=== PATIENT | male | born 1965 | race Caucasian/White ===

== ENCOUNTER → 2017-01-27 | Outpatient (CLI) | payer OTHER ==
[2017-01-27 18:09] LABS: HEMATOCRIT 42.9 % (42-52)
[2017-01-27 18:40] LABS: ALT/SGPT 20 U/L (12-78); BLOOD UREA NITROGEN 14 mg/dl (7-18); BUN/CREATININE RATIO 16.4 (10-20); CALCIUM 8.8 mg/dl (8.5-10.1); CARBON DIOXIDE 31 mmol/L (21-32); CHLORIDE 105 mmol/L (98-107); CHOLESTEROL 161 mg/dl (0-200); CHOLESTEROL/HDL RATIO 2.8; CREATININE 0.83 mg/dl (0.60-1.40); GLUCOSE 64 mg/dl (70-99); HDL CHOLESTEROL 58 mg/dl; LDL CHOLESTEROL CALCULATED 57 mg/dl; POTASSIUM 3.7 mmol/L (3.5-5.1); SODIUM 142 mmol/L (136-145); TRIGLYCERIDES 228 mg/dl (0-150); VERY LOW DENSITY LIPOPROT CALC 46 mg/dl
== END | disposition home or self-care (01) ==
LOC: C.LABMFLN 15:59
PROVIDERS: ATTEND Family Medicine
DX: E78.5 Hyperlipidemia, unspecified (principal); I10 Essential (primary) hypertension; R53.83 Other fatigue

== ENCOUNTER 2022-11-23 08:41 | Inpatient (IN) ==
--- NOTE | 2022-09-15 09:43 | Communication Note ---
Date of Service: September 15, 2022 Patient does not meet criteria to be done at [facility]. Pt is 163.3 KG w/ BMI 51.7( super Obese), along w/ other significant co-morbidities.
--- NOTE | 2022-10-21 11:08 | PAT Medication Instructions ---
Medication Instructions Date of Service October 21, 2022 Home Medications Medication Instructions Recorded Full mask/Nasal Mask #1 ea 05/20/20 cyclobenzaprine 10 mg tablet 10 mg PO BID PRN muscle spasm #60 06/10/22 tabs oxycodone 5 mg tablet 5 mg PO Q8H PRN pain #9 tabs 09/07/22 melatonin 10 mg tablet 10 mg PO HS PRN sleep #90 tabs 09/10/22 Wheeled Walker #1 ea 09/16/22 gabapentin 600 mg tablet 1,200 mg PO BID #120 tabs 10/07/22 simvastatin 40 mg tablet 40 mg PO HS #90 tabs 10/07/22 escitalopram oxalate 20 mg tablet 20 mg PO QAM ketoconazole 2 % topical cream 1 applic topical BID PRN irritation nystatin 100,000 unit/gram topical powder 1 applic topical BID PRN flare cyclobenzaprine 10 mg tablet 10 mg PO BID PRN muscle spasm bupropion HCl 300 mg 24 hr tablet, extended release 300 mg PO QAM buspirone 15 mg tablet 15 mg PO TID calcium 500 mg tablet 500 mg PO QAM latanoprost 0.005 % eye drops 1 drp ophthalmic (eye) HS multivitamin 1 tab PO QAM omeprazole 40 mg capsule,delayed release 40 mg PO QAM oxycodone 5 mg tablet 5 mg PO Q8H PRN pain topiramate 100 mg tablet 100 mg PO BID hydroxyzine pamoate 25 mg capsule 50 mg PO HS melatonin 10 mg tablet 10 mg PO HS PRN sleep cetirizine 10 mg tablet 10 mg PO QAM ergocalciferol (vitamin D2) 50 mcg (2,000 unit) tablet 50 mcg PO QAM gabapentin 600 mg tablet 1,200 mg PO BID simvastatin 40 mg tablet 40 mg PO HS STOP taking 24 hours before surgery ketoconazole 2 % topical cream 1 applic topical BID PRN irritation nystatin 100,000 unit/gram topical powder 1 applic topical BID PRN flare DO NOT take the morning of surgery cyclobenzaprine 10 mg tablet 10 mg PO BID PRN muscle spasm calcium 500 mg tablet 500 mg PO QAM multivitamin 1 tab PO QAM cetirizine 10 mg tablet 10 mg PO QAM ergocalciferol (vitamin D2) 50 mcg (2,000 unit) tablet 50 mcg PO QAM Take morning of surgery With a small sip of water, OTHERWISE NOTHING TO EAT OR DRINK AFTER MIDNIGHT: escitalopram oxalate 20 mg tablet 20 mg PO QAM bupropion HCl 300 mg 24 hr tablet, extended release 300 mg PO QAM buspirone 15 mg tablet 15 mg PO TID omeprazole 40 mg capsule,delayed release 40 mg PO QAM oxycodone 5 mg tablet 5 mg PO Q8H PRN pain (if needed) topiramate 100 mg tablet 100 mg PO BID gabapentin 600 mg tablet 1,200 mg PO BID Take evening before surgery cyclobenzaprine 10 mg tablet 10 mg PO BID PRN muscle spasm (if needed) buspirone 15 mg tablet 15 mg PO TID latanoprost 0.005 % eye drops 1 drp ophthalmic (eye) HS oxycodone 5 mg tablet 5 mg PO Q8H PRN pain (if needed) topiramate 100 mg tablet 100 mg PO BID hydroxyzine pamoate 25 mg capsule 50 mg PO HS melatonin 10 mg tablet 10 mg PO HS PRN sleep (if needed) gabapentin 600 mg tablet 1,200 mg PO BID simvastatin 40 mg tablet 40 mg PO HS Other Notes If you have any questions please call us at [phone] or [phone] or [phone] or [phone]
--- NOTE | 2022-10-27 10:30 | Anesthesiology Consultation ---
Date of Service October 27, 2022 Assessment & Plan (1) Encounter for pre-operative examination: Chart Review Chart Review: Acceptable Risk for Surgery (pending PCP appt 11/11/22) and Patient seen in Pre Admission Testing - Awaiting routine PCP appt 11/11/22 - Due to BMI and living situation- patient is NOT an ideal OPJ candidate Per PAT appt on 10/27/22, patient denies any recent travel or large group activities. Pt is vaccinated for Covid. Will leave to surgeon's discretion if preop Covid testing needed. Educated on importance of using Covid precautions one week prior to surgery History Surgery Operation Date: 09/24/22 07:00 Proposed Procedures p Right Knee Arthroscopy, Partial Medial Meniscectomy, Chondroplasty(Right) - Max Tinajero DO Operation Date: 11/23/22 10:30 Proposed Procedures p Right Total Knee Arthroplasty - Max Tinajero DO Pt scheduled for right TKA 11/23/22 Height/Weight Height: 5 ft 10 in Weight: 166.3 kg Allergies Allergy/AdvReac Type Severity Reaction Status Date / Time adhesive Allergy Intermediate Blister Verified 10/20/22 09:06 and redness Medications Home Medications Medication Instructions Recorded Confirmed Last Taken escitalopram oxalate 20 mg tablet 20 mg PO QAM 06/12/19 10/20/22 09/07/22 Full mask/Nasal Mask #1 ea 05/20/20 09/10/22 Unknown ketoconazole 2 % topical cream 1 applic topical BID PRN irritation 08/04/21 10/20/22 1 Week Ago ~08/31/22 nystatin 100,000 unit/gram topical 1 applic topical BID PRN flare 08/04/21 10/20/22 1 Week Ago powder ~08/31/22 cyclobenzaprine 10 mg tablet 10 mg PO BID PRN muscle spasm #60 06/10/22 10/20/22 1 Week Ago tabs ~08/31/22 bupropion HCl 300 mg 24 hr tablet, 300 mg PO QAM 09/07/22 10/20/22 09/07/22 extended release buspirone 15 mg tablet 15 mg PO TID 09/07/22 10/20/22 09/07/22 calcium 500 mg tablet 500 mg PO QAM 09/07/22 10/20/22 09/07/22 latanoprost 0.005 % eye drops 1 drp ophthalmic (eye) HS 09/07/22 10/20/22 09/06/22 multivitamin 1 tab PO QAM 09/07/22 10/20/22 09/07/22 omeprazole 40 mg capsule,delayed 40 mg PO QAM 09/07/22 10/20/22 09/07/22 release oxycodone 5 mg tablet 5 mg PO Q8H PRN pain #9 tabs 09/07/22 10/20/22 Unknown topiramate 100 mg tablet 100 mg PO BID 09/07/22 10/20/22 09/07/22 hydroxyzine pamoate 25 mg capsule 50 mg PO HS 09/10/22 10/20/22 Unknown melatonin 10 mg tablet 10 mg PO HS PRN sleep #90 tabs 09/10/22 10/20/22 Unknown cetirizine 10 mg tablet 10 mg PO QAM 09/14/22 10/20/22 Unknown ergocalciferol (vitamin D2) 50 mcg 50 mcg PO QAM 09/14/22 10/20/22 Unknown (2,000 unit) tablet Wheeled Walker #1 ea 09/16/22 Unknown gabapentin 600 mg tablet 1,200 mg PO BID #120 tabs 10/07/22 10/20/22 Unknown simvastatin 40 mg tablet 40 mg PO HS #90 tabs 10/07/22 10/20/22 Unknown Past Medical History Medical History (Updated 10/27/22 @ 16:14 by Marylin Lozano PA-C) Anxiety Asthma mild- breathing stable - aggravated by illness chronic intermittent wheezing - stable Depression GERD (gastroesophageal reflux disease) well controlled and stable History of COVID-19 2020- symptoms resolved Hyperlipidemia Hypertension borderline- no current BP meds (pt stopped on own)- PCP aware BP 122/85 at PAT appt 10/27/22 Osteopenia Peripheral neuropathy Bilateral hands and feet Restless legs syndrome Seasonal allergies Sleep apnea cpap Exercise / Class Metabolic Activity II 4-5 Yardwork/Stairs/Walk up hill (one flight of stairs - no chest pain or SOB ) Past Family History Family History Mother Kidney disease Diabetes Myocardial infarction Heart disease Hypertension Brother Bone cancer Myocardial infarction Hypertension FHx: kidney cancer Skin cancer Aunt Liver disease Daughter Epilepsy Hyperlipidemia Grandmother Myocardial infarction Father Lung cancer Past Surgical History Surgical History 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 History of carpal tunnel surgery of right wrist History of femoral hernia repair and right inguinal hernia at the time History of lumbar surgery removed scar tissue History of oral surgery multiple teeth ext Hx of fusion of cervical spine c5-6 with harware Hx of kyphoplasty l5 due to fracture Hx of right inguinal hernia repair Past Anesthesia History No Hx of Anesthesia Complications and No Family Hx of Anesthesia Complications History of PONV No Hx of PONV and No Hx of Motion Sickness Social History Smoking Status: Former smoker tobacco type: cigarettes Do You Dip or Chew Tobacco: Yes (1 can/week - advised ) Smoking End Date: quit 2005 Hx Alcohol Use: No Hx Substance Use: No substance use type: does not use Review of Systems Chronic cough in the AM- feels due to allergies- stable. Patient denies chest pain, shortness of breath, dyspnea on exertion, palpitations. No hx of seizures, stroke, SD No hx of blood clots or blood transfusions Physical Exam Vital Signs VITALS BP 122/85 P 56 TEMP 98.7 SP02 95% RESP 16 Constitutional no acute distress ENMT Mouth: no TMJ clicking Thyromental Distance: > or= 3.5 Finger Breadths (4.0) Mallampati Class: III Missing all teeth Neck + thick neck and + limited neck extension Respiratory normal respiratory effort; no respiratory distress Auscultation: lungs clear to auscultation bilaterally; no wheezes Cardiovascular Rate/Rhythm: regular rate and regular rhythm Heart Sounds: no murmur Vessels: no carotid bruit Musculoskeletal Spine: no pain with cervical ROM Extremities: extremities normal to inspection (with exception to amputation of 4th left finger ) Psychiatric Orientation: alert Lab Results Anesthesia Preop Results Results Anesthesia Widget: WBC 8.01 K/ul (4.8-10.8) 10/27/22 Hgb 14.9 g/dl (14.0-18.0) 10/27/22 Hct 43.7 % (42.0-52.0) 10/27/22 Plt 226 K/uL (130-400) 10/27/22 Na 142 mmol/L (136-145) 10/27/22 K 3.8 mmol/L (3.5-5.1) 10/27/22 Cl 111 mmol/L (98-107) H 10/27/22 CO2 23 mmol/L (21-32) 10/27/22 BUN 17 mg/dl (6-23) 10/27/22 Creat 0.88 mg/dl (0.6-1.4) 10/27/22 Glucose Level 85 mg/dl (70-99(Fasting)) 10/27/22 PT 10.1 Seconds (9.0-12.0) 10/27/22 PTT 22.8 Seconds (21.0-31.0) 10/27/22 INR 0.9 (0.9-1.1) 10/27/22 TSH 1.978 uIu/ml (0.300-4.500) 10/27/22 HA1c 5.5 % (4.5-5.6) 10/27/22 Blood Type A Positive 10/27/22 Antibody Screen NEGATIVE 10/27/22 Testing Electrocardiogram Date: 09/07/22 Findings: + NSR @ (63bpm ) Low voltage QRS Nonspecific T wave abnormality Other Testing Chest CTA 09/10/22= No acute pulmonary emboli. Hypoventilatory changes with lungs. No consolidation. No suspicious nodule. Unremarkable pleural spaces. No pneumothorax. No pleural effusion
--- NOTE | 2022-11-19 14:31 | History & Physical Report ---
Date of Service November 19, 2022 Assessment & Plan (1) Osteoarthritis, knee: We will proceed with a right total knee arthroplasty. Postoperatively he will be started on anticoagulations and kept overnight in the hospital for postop medical management. History of Present Illness Chief Complaint: Osteoarthritis of the right knee. Primary Care Provider: Thad Ramos MD Taco is a pleasant 57-year-old male, who was seen several years ago with increasing right knee pain. He had an MRI in 2020, which showed mild arthritis and meniscus tear. He was treated with injections. Unfortunately, his knee pain is getting worse. He has now downgraded to a cane. He had a recent MRI of his knee, which unfortunately shows worsening osteoarthritis. After failed extensive conservative treatment, he has elected proceed with a right total knee arthroplasty. Allergies Allergy/AdvReac Type Severity Reaction Status Date / Time adhesive Allergy Intermediate Blister Verified 11/11/22 10:03 and redness Home Medications Medication Instructions Recorded Confirmed Type escitalopram oxalate 20 mg tablet 20 mg PO QAM 06/12/19 11/11/22 History Full mask/Nasal Mask #1 ea 05/20/20 11/11/22 Rx cyclobenzaprine 10 mg tablet 10 mg PO BID PRN muscle spasm #60 06/10/22 11/11/22 Rx tabs bupropion HCl 300 mg 24 hr tablet, 300 mg PO QAM 09/07/22 11/11/22 History extended release buspirone 15 mg tablet 15 mg PO TID 09/07/22 11/11/22 History calcium 500 mg tablet 500 mg PO QAM 09/07/22 11/11/22 History latanoprost 0.005 % eye drops 1 drp ophthalmic (eye) HS 09/07/22 11/11/22 History multivitamin 1 tab PO QAM 09/07/22 11/11/22 History omeprazole 40 mg capsule,delayed 40 mg PO QAM 09/07/22 11/11/22 History release hydroxyzine pamoate 25 mg capsule 50 mg PO HS 09/10/22 11/11/22 History melatonin 10 mg tablet 10 mg PO HS PRN sleep #90 tabs 09/10/22 11/11/22 Rx cetirizine 10 mg tablet 10 mg PO QAM 09/14/22 11/11/22 History ergocalciferol (vitamin D2) 50 mcg 50 mcg PO QAM 09/14/22 11/11/22 History (2,000 unit) tablet simvastatin 40 mg tablet 40 mg PO HS #90 tabs 10/07/22 11/11/22 Rx gabapentin 600 mg tablet 1,200 mg PO BID #360 tabs 11/11/22 11/11/22 Rx ketoconazole 2 % topical cream 1 applic topical BID PRN 11/11/22 11/11/22 Rx irritation #60 grams nystatin 100,000 unit/gram topical 1 applic topical BID PRN flare #60 11/11/22 11/11/22 Rx powder grams topiramate 100 mg tablet 200 mg PO BID 11/11/22 11/11/22 History topiramate 200 mg tablet 200 mg PO BID 11/11/22 11/11/22 History Past Med/Surg History Medical History Anxiety Asthma mild- breathing stable - aggravated by illness chronic intermittent wheezing - stable Depression GERD (gastroesophageal reflux disease) well controlled and stable History of COVID-2020- symptoms resolved Hyperlipidemia Hypertension borderline- no current BP meds (pt stopped on own)- PCP aware BP 122/85 at PAT appt 10/27/22 Osteopenia Peripheral neuropathy Bilateral hands and feet Restless legs syndrome Seasonal allergies Sleep apnea cpap Surgical History 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 History of carpal tunnel surgery of right wrist History of femoral hernia repair and right inguinal hernia at the time History of lumbar surgery removed scar tissue History of oral surgery multiple teeth ext Hx of fusion of cervical spine c5-6 with harware Hx of kyphoplasty l5 due to fracture Hx of right inguinal hernia repair Family History Mother Kidney disease Diabetes Myocardial infarction Heart disease Hypertension Brother Bone cancer Myocardial infarction Hypertension FHx: kidney cancer Skin cancer Aunt Liver disease Daughter Epilepsy Hyperlipidemia Grandmother Myocardial infarction Father Lung cancer Social History Smoking Status: Former smoker Tobacco Type: Cigarettes Age Started Using Tobacco: 16; Age Quit Using Tobacco: 37; packs per day: 1; Second Hand Exposure: No; Do You Dip or Chew Tobacco: Yes (1 can/week - advised ); Hx Alcohol Use: No Hx Substance Use: No Preferred Language: [place] Leonean Communication Ability: Effective Ground [employer] Required: No Beliefs That Will Affect Care: None marital status: Current Living Situation: Spouse Feels Safe at Home: Yes Childhood Exposure to Second-Hand Smoke: Yes Seatbelt Use: always Sunscreen Use: No Assistive Devices: Cane, CPAP and Glasses Review of Systems All systems reviewed & are unremarkable except as noted in HPI & below. Physical Exam On physical examination the right knee, he has good motion 0 to 120 degrees. No instability. Pain of the distal medial femoral condyle and over the medial joint line.. Constitutional WD/WN, vitals as above Eyes PERRL, conjunctivae normal, anicteric sclerae ENMT external ear and nose normal, oropharynx normal Neck trachea midline, no thyromegaly Respiratory normal respiratory effort, lungs clear to auscultation Cardiovascular RRR, no murmur, no edema Gastrointestinal (Abdomen) normal bowel sounds, soft, nontender, no hepatosplenomegaly Skin no rashes, warm and dry Psychiatric A+Ox3, euthymic affect Results & Data Results & Data Laboratory Results . Diagnostic Findings X-rays of the right knee do show show signs of osteoarthritis with some joint space narrowing osteophyte formation and [id number] tubulation MRI of the right knee shows a complex medial meniscus tear and complete chondral loss off the distal medial femoral condyle.. PG Care Time/CCT Total # of Minutes Spent Total Time Spent with Patient: Total time spent is greater than 50% in coordination of care (as documented) at patient's floor/unit and/or counseling patient: Coding Level of Care Code None Diagnoses Osteoarthritis, knee M17.10
[~2022-11-23 08:41] MED LIST: ACETAMINOPHEN 500 MG TAB PO SCH; BUPIVACAINE 0.5 % 5 MG/1 ML PF 10ML VIAL ONE; FAMOTIDINE 20 MG TAB PO SCH; GABAPENTIN 600 MG DOSE PO SCH; LR 500ML BOLUS, THEN 15ML/HR IV SCH; LR 60ML/HR IV SCH; ORTHO JOINT MIX INFIL SCH; ROPIVACAINE 0.5% 5 MG/ML 30 ML VIAL ONE; TRANEXAMIC ACID 1,000 MG **IV Intra-op IV SCH; TRANEXAMIC ACID 1,000 MG **IV Pre-op IV SCH; dexAMETHasone 4 MG TAB PO SCH
[2022-11-23] MEDS ORDERED: ATROPINE SULFATE 0.1 MG/ML 10ML SYR IV PRN (09:39)
[2022-11-23] MEDS ORDERED: ONDANSETRON INJ 2 MG/ML 2 ML VIAL IV PRN ×2 (09:39→13:55)
[2022-11-23] MEDS ORDERED: fentaNYL citrate PF 100 MCG/2 ML VIAL IV PRN (09:39)
[2022-11-23] MEDS ORDERED: ePHEDrine sulfate 50 MG/ML AMP IV PRN (09:39)
[2022-11-23] MEDS ORDERED: MIDAZOLAM HCL 1 MG/ML 2ML VIAL ONE (09:42)
[2022-11-23] MEDS ORDERED: fentaNYL citrate PF 100 MCG/2 ML VIAL ONE (09:58)
--- NOTE | 2022-11-23 10:18 | History & Physical Bridge Note ---
Date of Service November 23, 2022 History & Physical Bridge Note I have examined the patient, reviewed the History & Physical and in the interval since the performance of the History & Physical I have noted the following changes of clinical significance: no changes noted
[2022-11-23] MEDS ORDERED: ORTHO JOINT ANESTHETIC ONE (10:45)
--- NOTE | 2022-11-23 13:29 | Operative Report ---
PG Post Operative Report Pre & Post Diagnosis Operation Date: 11/23/22 10:20 Pre-Op Diagnosis: Osteoarthritis, right knee Post-Op Diagnosis: Osteoarthritis, right knee I identified the patient and participated in the time-out.: Yes Procedure Operation Date: 11/23/22 10:20 Actual Procedures p Right total knee arthroplasty, cemented.(Right) - Max Tinajero DO Surgeon Max Tinajero DO [employer] Max Gutierrez PA-C Estimated Blood Loss 30 Findings Consistent with Post-Op Diagnosis Specimens Right femoral tibial bone Description of Procedure Implants used: I used a Philipp Persona total knee arthroplasty system with a size 10 PS femur, F tibia with a 30 mm stem extension, 31 oval patella, and a size 10 CPS polyethy anuja bearing. All components were cemented in place with Biomet cement. Taco aranda [facility] for the above procedure. He was seen in the preoperative holding area and the operative extremity was identified and signed. He was given a preoperative antibiotic, TXA, a spinal anesthetic and an adductor nerve block. He was taken back to the operating room and laid on the table in supine position. He was given basic sedation. The operative knee was then prepped and draped in sterile fashion. A timeout was done, and the patient and the operative extremity was properly identified. A midline incision was made directly over the patella. Dissection was taken down to the extensor mechanism. A medial parapatellar arthrotomy was used. The medial retinaculum was released and the fat pad was mostly excised. The knee was flexed and the ACL, PCL, and meniscus were removed. A drill was sent down the center of the femoral canal followed by an intramedullary jcarlos. Off that jcarlos a distal femoral cutting block was placed. 9 mm was resected off the distal femur at 5 of valgus. A posterior referencing AP sizing guide was then placed on the distal femur. The femur measured to be a size 10. 2 drill holes were placed in 3 of external rotation. A 4-in-1 cutting block was then impacted into place. Anterior, posterior, and chamfer cuts were then made. The proximal tibia was then exposed. An external tibial alignment guide was placed. A tibial cut guide was then anchored in place and the proximal tibia was then resected. The posterior aspect of the knee was then opened up and any additional meniscus fragments and osteophytes were removed. The tibia measured to be a size F. The tibial plate was then placed in the appropriate rotation and the tibia was drilled and punched. Trial components were then placed. I used a size 10 CPS polyethylene insert. The knee was brought through a full range of motion and felt to be stable. The peg holes for the femoral component were then drilled. The patella was then everted and 9 mm was resected off the posterior aspect of the patella. The patella measured to be a size 31 oval. 3 peg holes were then drilled. A trial patella was placed. The knee was once again brought through a full range of motion and felt to be stable. Trial components were then removed. The surrounding soft tissues were injected with 100 cc of an orthopedic pain control cocktail. All components were then cemented into place with Biomet cement. The final polyethylene insert was then snapped into place. Once cement was dry the tourniquet was deflated. Hemostasis was obtained. Surgiphor Betadine lavage was used throughout the case the joint was then irrigated with normal saline solution. The medial parapatellar arthrotomy was then closed with #1 Vicryl suture. The skin was closed with 2-0 Vicryl, 3-0V lock suture, and danish. A soft compressive dressing was placed. He was then transferred to a hospital bed and taken to the postanesthesia care unit in stable condition. He tolerated the procedure well. Max Gutierrez PA-C, was present for the entire procedure. He was critical for patient positioning, prepping, draping, retraction exposure, wound closure and application of sterile dressing. I attest to the content of the Intraoperative Record and any orders documented therein. Any exceptions are noted below.
--- NOTE | 2022-11-23 13:29 | Anesthesiology Progress Note ---
Date of Service November 23, 2022 Anesthesia Post Procedure Vital Signs Vital Signs: Temp Pulse Pulse Resp BP Pulse Ox O2 Del Method 11/23/22 13:20 63 11 L 122/84 96 Room Air 11/23/22 13:10 65 13 122/96 96 Oxymask 11/23/22 13:00 98.1 F 74 18 109/82 97 Oxymask 11/23/22 09:37 98.1 F 64 18 146/93 H 98 Room Air 11/23/22 09:27 Room Air O2 Flow Rate 11/23/22 13:20 11/23/22 13:10 5 11/23/22 13:00 5 11/23/22 09:37 11/23/22 09:27 Transfer of Care Handoff Completed per policy Notes Mental Status: alert / awake / arousable and participated in evaluation Patient Amnestic to Procedure: Yes Nausea / Vomiting: adequately controlled Pain: adequately controlled Airway Patency, RR, SpO2: stable & adequate BP & HR: stable & adequate Hydration State: stable & adequate Neuraxial Anesthesia: was administered and sensory block is resolving Anesthetic Complications: no major complications apparent and Pt Satisfied with anesthetic care
[2022-11-23] MEDS ORDERED: KETOCONAZOLE 2% CR 15 GM TUBE EXT PRN (13:55)
[2022-11-23] MEDS ORDERED: CYCLOBENZAPRINE HCL 10 MG TAB PO PRN (13:55)
[2022-11-23] MEDS ORDERED: METOCLOPRAMIDE HCL INJ 5 MG/ML 2 ML VIAL IV PRN (13:55)
[2022-11-23] MEDS ORDERED: MAGNESIUM HYDROXIDE SUSP 30 ML UDC PO PRN (13:55)
[2022-11-23] MEDS ORDERED: bisacodyL 10 MG SUPP PR PRN (13:55)
[2022-11-23] MEDS ORDERED: NALOXONE HCL 0.4 MG/1 ML VIAL/CARP IV PRN (13:55)
[2022-11-23] MEDS ORDERED: MELATONIN 3 MG TAB PO PRN (14:08)
--- NOTE | 2022-11-23 14:24 | XRay Report ---
TWO VIEWS RIGHT KNEE CLINICAL HISTORY: Postoperative examination. FINDINGS: AP and crosstable lateral portable views of the right knee are obtained. A right knee arthr oplasty is in near anatomic alignment. There has been undersurface remodeling of the patella. No acut e fracture is seen. There is a tiny ossific fragment adjacent to the lateral tibial plateau. There ar e expected postoperative changes around the knee including skin clips, soft tissue edema, and subcuta neous gas. IMPRESSION: Expected postoperative changes status post right knee arthroplasty. No acute fracture is seen. ACT 112: Negative or not required by law. Electronically signed by: Prosper Matos M.D. 11/23/2022 2:23 PM
[2022-11-23] MEDS: SODIUM CHLORIDE 0.9% 1000ML 1,000 ML IV SCH (14:43)
[2022-11-23] MEDS: busPIRone 15 MG TAB PO SCH ×2 (14:45→20:28)
[2022-11-23] MEDS: KETOROLAC 30 MG/ML VIAL IV SCH ×2 (16:18→22:48)
[2022-11-23] MEDS: ceFAZolin 2000MG 2,000 MG/15 ML SYR IV SCH (18:01)
[2022-11-23] MEDS: oxyCODONE HCL IR 5 MG TAB (IMMEDIATE RELEASE) PO PRN (18:01)
[2022-11-23] MEDS: HYDROmorphone INJ 0.5 MG/0.5 ML SYR IV PRN (20:23)
[2022-11-23] MEDS: hydrOXYzine HCl 25 MG TAB PO SCH (20:28)
[2022-11-23] MEDS: SIMVASTATIN 40 MG TAB PO SCH (20:28)
[2022-11-23] MEDS: ASPIRIN 81 MG ECTAB PO SCH (20:28)
[2022-11-23] MEDS: GABAPENTIN 600 MG TAB PO SCH (20:28)
[2022-11-23] MEDS: SENNA 8.6 MG TAB PO SCH (20:28)
[2022-11-23] MEDS: TOPIRAMATE 100 MG TAB PO SCH (20:28)
[2022-11-23] MEDS: DOCUSATE SODIUM 100 MG CAP PO SCH (20:28)
[2022-11-23] MEDS: LATANOPROST 0.005% OP SOLN 2.5 ML BTL OP SCH (20:29)
[2022-11-23] MEDS: ACETAMINOPHEN 500 MG TAB PO SCH (22:48)
[2022-11-24] MEDS: SODIUM CHLORIDE 0.9% 1000ML 1,000 ML IV SCH (00:26)
[2022-11-24] MEDS: HYDROmorphone INJ 0.5 MG/0.5 ML SYR IV PRN ×2 (01:56→13:47)
[2022-11-24] MEDS: ceFAZolin 2000MG 2,000 MG/15 ML SYR IV SCH (01:56)
[2022-11-24] MEDS: KETOROLAC 30 MG/ML VIAL IV SCH ×4 (05:29→22:04)
[2022-11-24] MEDS: ACETAMINOPHEN 500 MG TAB PO SCH ×3 (05:29→22:03)
--- NOTE | 2022-11-24 07:03 | Orthopedic Progress Note ---
Date of Service November 24, 2022 Assessment & Plan (1) Status post right knee replacement: Overall is doing fairly well. Is not having much pain in the right knee. He will be seen by physical therapy today for ambulation and range of motion exercises. He is on aspirin for DVT prophylaxis. His insurance is requiring a 3-day stay before he can go to a rehab facility. We will continue to follow him closely. Subjective Taco was seen and examined at bedside this morning. Overall is doing fairly well. He is not having much pain in the right knee. He has been up and ambulating to the bathroom. He has no complaints.. Review of Systems All systems reviewed & are unremarkable except as noted in HPI & below. Physical Exam On physical examination of the right knee, the dressing is clean and dry. His leg is out full extension. He has active dorsiflexion plantarflexion of his right ankle.. Results & Data Results & Data Laboratory Results . Diagnostic Findings Postoperative x-rays of the right knee show the prosthesis to be in anatomic alignment without any evidence of fracture, dislocation, or loosening.. PG Care Time/CCT Total # of Minutes Spent Total Time Spent with Patient: Total time spent is greater than 50% in coordination of care (as documented) at patient's floor/unit and/or counseling patient: Coding Level of Care Code 43775 Post Operative Follow-Up Diagnoses Status post right knee replacement Z96.651
[2022-11-24] MEDS ORDERED: dexAMETHasone 4 MG TAB PO SCH (08:00)
[2022-11-24] MEDS: MULTIVITAMIN TAB PO SCH (08:42)
[2022-11-24] MEDS: GABAPENTIN 600 MG TAB PO SCH ×2 (08:42→19:45)
[2022-11-24] MEDS: TOPIRAMATE 100 MG TAB PO SCH ×2 (08:42→19:48)
[2022-11-24] MEDS: PANTOprazole 40 MG TAB PO SCH (08:42)
[2022-11-24] MEDS: ESCITALOPRAM OXALATE 20 MG TAB PO SCH (08:43)
[2022-11-24] MEDS: busPIRone 15 MG TAB PO SCH ×3 (08:43→19:46)
[2022-11-24] MEDS: CHOLECALCIFEROL 1,000 UNITS 25 MCG TAB PO SCH (08:43)
[2022-11-24] MEDS: DOCUSATE SODIUM 100 MG CAP PO SCH ×2 (08:43→19:50)
[2022-11-24] MEDS: buPROPion XL 300 MG TABCR PO SCH (08:43)
[2022-11-24] MEDS: ASPIRIN 81 MG ECTAB PO SCH ×2 (08:44→19:46)
[2022-11-24] MEDS: CETIRIZINE HCL 10 MG TABLET PO SCH (08:44)
[2022-11-24] MEDS: SENNA 8.6 MG TAB PO SCH (19:47)
[2022-11-24] MEDS: hydrOXYzine HCl 25 MG TAB PO SCH (19:47)
[2022-11-24] MEDS: SIMVASTATIN 40 MG TAB PO SCH (19:48)
[2022-11-24] MEDS: LATANOPROST 0.005% OP SOLN 2.5 ML BTL OP SCH (19:49)
[2022-11-24] MEDS: oxyCODONE HCL IR 5 MG TAB (IMMEDIATE RELEASE) PO PRN (20:01)
[2022-11-25] MEDS: KETOROLAC 30 MG/ML VIAL IV SCH ×2 (04:20→08:43)
[2022-11-25] MEDS: ACETAMINOPHEN 500 MG TAB PO SCH ×3 (05:53→22:14)
[2022-11-25] MEDS: busPIRone 15 MG TAB PO SCH ×3 (08:41→19:33)
[2022-11-25] MEDS: MULTIVITAMIN TAB PO SCH (08:41)
[2022-11-25] MEDS: GABAPENTIN 600 MG TAB PO SCH ×2 (08:41→19:34)
[2022-11-25] MEDS: PANTOprazole 40 MG TAB PO SCH (08:41)
[2022-11-25] MEDS: TOPIRAMATE 100 MG TAB PO SCH ×2 (08:41→19:36)
[2022-11-25] MEDS: buPROPion XL 300 MG TABCR PO SCH (08:42)
[2022-11-25] MEDS: CHOLECALCIFEROL 1,000 UNITS 25 MCG TAB PO SCH (08:42)
[2022-11-25] MEDS: CETIRIZINE HCL 10 MG TABLET PO SCH (08:42)
[2022-11-25] MEDS: ASPIRIN 81 MG ECTAB PO SCH ×2 (08:42→19:37)
[2022-11-25] MEDS: ESCITALOPRAM OXALATE 20 MG TAB PO SCH (08:45)
[2022-11-25] MEDS: DOCUSATE SODIUM 100 MG CAP PO SCH ×2 (08:53→19:34)
--- NOTE | 2022-11-25 09:45 | Orthopedic Progress Note ---
Date of Service November 25, 2022 Assessment & Plan (1) Status post right knee replacement: POD #2 from Right tka. Discharge planning: he is hoping to go to rehab/awaiting insurance approval PT/OT: tka protocol/wbat DVT prophylaxis: duong's/scd's/aspirin Dressing changed today. ABD pads applied with his DUONG stocking. Change as needed. Subjective .Taco is a 57 year old patient POD #2 from right tka with Dr. Tinajero. He is in a chair doing therapy. He is doing pretty well. Pain is controlled. No new complaints. Review of Systems All systems reviewed & are unremarkable except as noted in HPI & below. Physical Exam . alert and oriented. NAD. Vital signs reviewed and stable. Blood pressure slightly elevated this morning. Right knee: Dressing had some dried blood on it and had been reinforced. Dressing changed today. Incision well approximated and danish intact. Slight bloody drainage. Moderate swelling to his knee/leg. Able to actively extend his knee/do straight leg raise. Flexion about 90 degrees. Able to dorsiflex and plantarflex appropriately. NVI. Results & Data Results & Data Laboratory Results . Diagnostic Findings . PG Care Time/CCT Total # of Minutes Spent Total Time Spent with Patient: Total time spent is greater than 50% in coordination of care (as documented) at patient's floor/unit and/or counseling patient: Coding Level of Care Code 56695 Post Operative Follow-Up Diagnoses Status post right knee replacement Z96.651
[2022-11-25] MEDS: hydrOXYzine HCl 25 MG TAB PO SCH (19:33)
[2022-11-25] MEDS: LATANOPROST 0.005% OP SOLN 2.5 ML BTL OP SCH (19:34)
[2022-11-25] MEDS: SIMVASTATIN 40 MG TAB PO SCH (19:35)
[2022-11-25] MEDS: SENNA 8.6 MG TAB PO SCH (19:35)
[2022-11-26] MEDS: oxyCODONE HCL IR 5 MG TAB (IMMEDIATE RELEASE) PO PRN ×2 (01:35→09:37)
[2022-11-26] MEDS: ACETAMINOPHEN 500 MG TAB PO SCH (06:05)
--- NOTE | 2022-11-26 06:09 | Orthopedic Progress Note ---
Date of Service November 26, 2022 Assessment & Plan (1) Status post right knee replacement: Overall he is doing very well. He is not having much pain in the right knee. He has been working well with physical therapy. He is on aspirin for DVT prophylaxis. There is a bed available for him at a rehab facility. He can be discharged to a rehab facility later today. He will follow-up with orthopedics in 2 weeks. Mikki España was seen and examined at bedside this morning. Overall is doing fairly well. Is not having much pain in the right knee. He has been up and ambulating with physical therapy. Has no complaints.. Review of Systems All systems reviewed & are unremarkable except as noted in HPI & below. Physical Exam On physical examination of the right knee, the dressing has very slight bloody drainage. He is sitting in a chair at bedside. He is knee flexed about 80 degrees.. Results & Data Results & Data Laboratory Results . Diagnostic Findings . PG Care Time/CCT Total # of Minutes Spent Total Time Spent with Patient: Total time spent is greater than 50% in coordination of care (as documented) at patient's floor/unit and/or counseling patient: Coding Level of Care Code 41200 Post Operative Follow-Up Diagnoses Status post right knee replacement Z96.651
--- NOTE | 2022-11-26 06:11 | Discharge Summary ---
Date of Service November 26, 2022 Admission HPI (Per Admitting) Taco is a pleasant 57-year-old male, who was seen several years ago with increasing right knee pain. He had an MRI in 2020, which showed mild arthritis and meniscus tear. He was treated with injections. Unfortunately, his knee pain is getting worse. He has now downgraded to a cane. He had a recent MRI of his knee, which unfortunately shows worsening osteoarthritis. After failed extensive conservative treatment, he has elected proceed with a right total knee arthroplasty. Admission Exam (Per Admitting) On physical examination the right knee, he has good motion 0 to 120 degrees. No instability. Pain of the distal medial femoral condyle and over the medial joint line.. Principal Diagnosis Same as "Discharge Diagnosis" noted below under Discharge Instructions. Discharge Exam On physical examination of the right knee, the dressing has very slight bloody drainage. He is sitting in a chair at bedside. He is knee flexed about 80 degrees.. Discharge Data Procedures Performed Operation Date: 11/23/22 10:20 Actual Procedures p Right total knee arthroplasty, cemented.(Right) - Max Tinajero DO Ordered Studies 11/23/22 05:00 US - OR guided needle placemen Routine Hospital Course (1) Status post right knee replacement: On November 23, 2022 Taco arrived at [facility] and underwent a right knee replacement without complication. He had a spinal anesthetic. Postoperatively he was started on aspirin for DVT prophylaxis and transferred to the general orthopedic floors. His hospital course was uneventful. On postop day #1, his vital signs were stable and his pain was well controlled. He was able to participate well with physical therapy doing ambulation and range of motion exercises. On postop day #2 his dressing was changed. He continue to work well with physical therapy. His pain was controlled with the pain medications. On postop day #3, he was doing well. A bed was available at a rehab facility. He was then discharged to rehab. He will follow-up with orthopedics in 2 weeks. PG Care Time/CCT Total # of Minutes Spent Total Time Spent with Patient: Total time spent is greater than 50% in coordination of care (as documented) at patient's floor/unit and/or counseling patient: Discharge Plan Discharge Items Patient Disposition: Home - Home Health Services Reason For Visit: Right Knee Medial Meniscus Tear, Arthritis Discharge Diagnosis: Status post right knee replacement Activity: Per Instructions section Non-emergency contact: Surgeon Call non-emergency contact if: your wound has increased redness and your wound has increased drainage Follow-up/Referrals: Thad Ramos MD [Primary Care Provider] - Diet: Regular Addtl Attending Provider Instructions: Activity and Therapy Recommendations: * If you are using [facility] then therapy will be provided at your home until they feel you have accomplished all of your goals. * If you are using [facility] then Physical Therapy will be provided until they feel you are ready to start Outpatient Physical Therapy. * If you are not using home therapy then Outpatient Physical Therapy should start about 3-5 days from your day of surgery. Therapy will last about 6-10 weeks * It is important not to put a pillow under your knee when you are relaxing or sleeping. It is just as important to make sure you are getting your knee perfectly straight as it is to regain your knee bend. * You were shown a series of exercises in the hospital. Do these exercises three times each day including the exercises you were shown in physical therapy. * Get up and walk several times each day. For the first four weeks, try not to stand or walk for more than one hour at a time. If you do stand or walk for more than one hour, you will not hurt anything, but your leg will likely swell. * As you feel comfortable, you may change from the walker or crutches to a cane and then to independent walking. Medications: * Narcotic You will likely be sent home from the hospital with a prescription for the narcotic pain medication that worked best throughout your stay. * Aspirin Most patients will be required to take Aspirin 81mg twice a day for 6 weeks after surgery. This is obtained [id number] and a prescription is not necessary. * Other medications may be prescribed for specific circumstances. If you have any questions, please call the office at . * Resume previous home medications unless otherwise instructed TEDs/Elastic Stockings: The white elastic stockings help limit swelling and prevent blood clots from forming in your legs.~ The more you wear them, the more they work. Wear them for six weeks. Dressing Care: The dressing can be changed after physical therapy on postop day #1. Daily dry dressing changes for a few days, especially if the incision is still draining some. If the incision is not draining then you may leave the danish open to air. If there is a little bit of drainage or if the danish are getting stuck on your clothing then cover the incision with a dry dressing. The danish will be removed at your 2 week follow-up appointment. Showering: You may shower 5 days from the day of surgery as long as the incision is no longer draining. You may shower with the danish exposed. Let soapy water run over the danish and pat them dry. Do not scrub or soak the incision. Things To Watch For: * Drainage from the incision site that occurs more than one week after your surgery. * Increased redness at the incision site. * Fever above 102 degrees Fahrenheit. * Unusual chest pain or shortness of breath. * Call [facility] at with any of the above problems Follow-Up Visit: Follow-up with Dr. Tinajero's PA (Mxa Gutierrez) 2-3 weeks after your day of surgery. He will remove your danish and answer any questions. If you have any additional questions or concerns, Dr Tinajero is usually in the office at the same time and will be available An appointment was probably scheduled when you signed-up for surgery in the office. If you have any questions call Office Instructions: More detailed instructions as well as Frequently Asked Questions were provided in a folder by our office when you signed-up for surgery. Please review these instructions when you get home. If you have any further questions or concerns, please feel free to call the office at [phone] Pending Studies at Discharge: No Stand-Alone Forms: [facility] Medications and DC Order Prescriptions: New aspirin 81 mg Tablet,Delayed Release (Dr/Ec) 81 mg PO BID 42 Days Qty: 84 0RF Continued (DME) Full mask/Nasal Mask See Rx Instructions .Route .MEDSUPPLY Qty: 1 0RF Rx Instructions: replacement cushion, disposable/nondisposable filters, tubing, headgear, chin strap and water chamber cyclobenzaprine 10 mg tablet 10 mg PO BID PRN (Reason: muscle spasm) Qty: 60 5RF simvastatin 40 mg tablet 40 mg PO HS Qty: 90 3RF escitalopram oxalate 20 mg tablet 20 mg PO QAM topiramate 200 mg tablet 200 mg PO BID nystatin 100,000 unit/gram powder 1 applic TOP BID PRN (Reason: flare) Qty: 60 8RF ketoconazole 2 % cream 1 applic TOP BID PRN (Reason: irritation) Qty: 60 5RF gabapentin 600 mg tablet 1,200 mg PO BID Qty: 360 1RF hydroxyzine pamoate 25 mg capsule 50 mg PO HS melatonin 10 mg tablet 10 mg PO HS PRN (Reason: sleep) Qty: 90 0RF cetirizine 10 mg tablet 10 mg PO QAM ergocalciferol (vitamin D2) 50 mcg (2,000 unit) tablet 50 mcg PO QAM multivitamin Tablet 1 tab PO QAM latanoprost 0.005 % drops 1 drp ophthalmic (eye) HS calcium 500 mg Tablet 500 mg PO QAM bupropion HCl 300 mg tablet extended release 24 hr 300 mg PO QAM omeprazole 40 mg capsule,delayed release(DR/EC) 40 mg PO QAM buspirone 15 mg tablet 15 mg PO TID Discharge Orders: Discharge Order (Routine); Ordered 11/26/22 Ordered By: Max Tinajero Admission Data Admit Date/Time: 11/23/22 14:57 Attending Provider: Mxa Tinajero Admit Provider: Max Tinajero Primary Care Provider: Thad Ramos Other Providers: Carmencita Stone
[2022-11-26] MEDS: TOPIRAMATE 100 MG TAB PO SCH (08:35)
[2022-11-26] MEDS: PANTOprazole 40 MG TAB PO SCH (08:35)
[2022-11-26] MEDS: buPROPion XL 300 MG TABCR PO SCH (08:35)
[2022-11-26] MEDS: CETIRIZINE HCL 10 MG TABLET PO SCH (08:35)
[2022-11-26] MEDS: GABAPENTIN 600 MG TAB PO SCH (08:35)
[2022-11-26] MEDS: busPIRone 15 MG TAB PO SCH (08:36)
[2022-11-26] MEDS: MULTIVITAMIN TAB PO SCH (08:36)
[2022-11-26] MEDS: DOCUSATE SODIUM 100 MG CAP PO SCH (08:36)
[2022-11-26] MEDS: CHOLECALCIFEROL 1,000 UNITS 25 MCG TAB PO SCH (08:36)
[2022-11-26] MEDS: ESCITALOPRAM OXALATE 20 MG TAB PO SCH (08:36)
[2022-11-26] MEDS: ASPIRIN 81 MG ECTAB PO SCH (08:36)
== END 2022-11-26 11:25 | DRG 470 ==
LOC: 3W 08:41 → ASU 08:41